=== PATIENT | female | born 1970 | race Caucasian/White ===

== ENCOUNTER 2017-02-05 15:19 | Inpatient (IN) | payer BC ==
[~2017-02-05] VITALS: Ht 170.2 cm; Wt 58.7 kg
[2017-02-05 16:53] LABS: CHLORIDE 100 mEq/L (99-109); POTASSIUM 3.5 mEq/L (3.7-5.4); SODIUM 132 mEq/L (136-147)
[2017-02-05 16:55] LABS: GLUCOSE 114 mg/dL (70-99)
[2017-02-05 16:56] LABS: ANION GAP 9 MEQ/L (2-14)
[2017-02-05 16:57] LABS: TOTAL BILIRUBIN 0.5 mg/dL (0.0-1.0)
[2017-02-05 16:58] LABS: ALKALINE PHOSPHATASE 46 IU/L (3-129)
[2017-02-05 16:59] LABS: GFR ESTIMATE (CALCULATED) 57 mL/min/
[2017-02-05 17:00] LABS: UREA NITROGEN (BUN) 14 mg/dL (9-23)
[2017-02-05 17:07] LABS: ADD MIUA? YES; BILIRUBIN NEGATIVE; BLOOD SMALL; COLOR YELLOW ((YELLOW)); GLUCOSE (STRIP) NEGATIVE; KETONES 20; LEUKOCYTES LARGE; NITRITE NEGATIVE; PROTEIN (STRIP) 100
[2017-02-05 17:08] LABS: QUANTITATIVE HCG < 4.0 MIU/ML
[2017-02-05 17:25] LABS: BACTERIA 3+ /HPF; CASTS NONE SEEN /LPF; CRYSTALS NONE SEEN; EPITHELIAL CELLS 1+ /HPF; MUCUS NONE SEEN /LPF; UCUL ADDED? YES; WHITE BLOOD CELLS TNTC /HPF (0-5)
[2017-02-05] MEDS ORDERED: SRONYX1 EACH PO (20:11)
[2017-02-05] MEDS ORDERED: IRON325 M1 PO (20:12)
[2017-02-05 21:24] LABS: EOSINOPHIL (%) 0 % (0-5); HEMATOCRIT 28.7 % (36.0-46.0); IMMATURE GRANULOCYTE (%) 0.8 % (0.0-0.7); IMMATURE GRANULOCYTE COUNT 0.1 K/uL; INSTRUMENT ABS NEUTROPHIL CT 11.2 K/uL; MCH 29.2 PG (29.0-34.0); MCHC 32.4 G/DL (30.0-36.0); MEAN PLAT.VOLUME 10.4 uM^3 (9.5-12.4); MONOCYTE COUNT 1.4 K/uL (0-0.8); NEUTROPHIL (%) 82.1 % (45-76); NEUTROPHIL COUNT 11.2 K/uL (1.8-6.4); PLATELET COUNT 152 K/uL (156-360); RBC DIS.WIDTH-CV 16.5 % (11.8-14.6); RBC DIS.WIDTH-SD 54.2 % (39-53); RED BLOOD COUNT 3.19 M/uL (3.80-5.20); WHITE BLOOD COUNT 13.6 K/uL (4.1-10.2)
[2017-02-05 22:36] VITALS: BP 98/55
[2017-02-05 23:49] VITALS: BP 96/68
[2017-02-06 03:50] VITALS: BP 128/61
[2017-02-06 06:52] LABS: HEMATOCRIT 27.5 % (36.0-46.0); MCH 30.7 PG (29.0-34.0); MCHC 33.5 G/DL (30.0-36.0); MCV 91.7 FL (83-99); MEAN PLAT.VOLUME 11.1 uM^3 (9.5-12.4); PLATELET COUNT 131 K/uL (156-360); WHITE BLOOD COUNT 9.9 K/uL (4.1-10.2)
[2017-02-06 07:21] LABS: ANION GAP 6 MEQ/L (2-14); CHLORIDE 107 MEQ/L (99-109); GFR ESTIMATE (CALCULATED) > 59 mL/min/; GLUCOSE 100 mg/dL (70-99); POTASSIUM 3.6 MEQ/L (3.7-5.4); SAMPLE HEMOLYSIS CHECK 0; SAMPLE ICTERIC CHECK 0; SAMPLE LIPEMIA CHECK 0; SODIUM 135 MEQ/L (136-147); UREA NITROGEN (BUN) 12 mg/dL (9-23)
[2017-02-06 07:30] VITALS: BP 91/53
[2017-02-06 11:35] VITALS: BP 94/54
[2017-02-06 15:37] VITALS: BP 114/70
[2017-02-06 19:58] VITALS: BP 93/50
[2017-02-07] VITALS (7 sets, daily range): BP systolic 81–116; BP diastolic 51–86
[2017-02-07 07:12] LABS: EOSINOPHIL (%) 0.2 % (0-5); HEMATOCRIT 27.7 % (36.0-46.0); IMMATURE GRANULOCYTE (%) 0.4 % (0.0-0.7); INSTRUMENT ABS NEUTROPHIL CT 4.1 K/uL; LYMPHOCYTE COUNT 0.9 K/uL (1.0-2.8); MCH 29.2 PG (29.0-34.0); MCHC 31.8 G/DL (30.0-36.0); MEAN PLAT.VOLUME 11.2 uM^3 (9.5-12.4); MONOCYTE (%) 10.4 % (3-12); MONOCYTE COUNT 0.6 K/uL (0-0.8); NEUTROPHIL (%) 72.3 % (45-76); NEUTROPHIL COUNT 4.1 K/uL (1.8-6.4); PLATELET COUNT 137 K/uL (156-360); RBC DIS.WIDTH-CV 17.1 % (11.8-14.6); RED BLOOD COUNT 3.01 M/uL (3.80-5.20); WHITE BLOOD COUNT 5.6 K/uL (4.1-10.2)
[2017-02-07 07:31] LABS: ALKALINE PHOSPHATASE 64 IU/L (3-129); ANION GAP 7 MEQ/L (2-14); CHLORIDE 109 MEQ/L (99-109); GFR ESTIMATE (CALCULATED) > 59 mL/min/; GLUCOSE 94 mg/dL (70-99); POTASSIUM 4.2 MEQ/L (3.7-5.4); SAMPLE HEMOLYSIS CHECK 0; SAMPLE ICTERIC CHECK 0; SAMPLE LIPEMIA CHECK 0; SODIUM 136 MEQ/L (136-147); TOTAL BILIRUBIN 0.3 MG/DL (0.0-1.0); UREA NITROGEN (BUN) 6 mg/dL (9-23)
[2017-02-07 09:11] LABS: C DIFF TOXIN NEGATIVE (NEGATIVE); PROBE CHECK PASS; SPECIMEN PROCESSING CONTROL PASS
[2017-02-08 03:38] VITALS: BP 112/67
[2017-02-08 05:54] LABS: EOSINOPHIL (%) 0.6 % (0-5); HEMATOCRIT 27.8 % (36.0-46.0); IMMATURE GRANULOCYTE (%) 0.4 % (0.0-0.7); INSTRUMENT ABS NEUTROPHIL CT 3.4 K/uL; LYMPHOCYTE COUNT 1.1 K/uL (1.0-2.8); MCH 30.4 PG (29.0-34.0); MCHC 33.1 G/DL (30.0-36.0); MCV 91.7 FL (83-99); MEAN PLAT.VOLUME 11.6 uM^3 (9.5-12.4); MONOCYTE COUNT 0.6 K/uL (0-0.8); NEUTROPHIL (%) 65.9 % (45-76); NEUTROPHIL COUNT 3.4 K/uL (1.8-6.4); PLATELET COUNT 165 K/uL (156-360); RBC DIS.WIDTH-CV 16.9 % (11.8-14.6); RBC DIS.WIDTH-SD 57.2 % (39-53); RED BLOOD COUNT 3.03 M/uL (3.80-5.20); WHITE BLOOD COUNT 5.1 K/uL (4.1-10.2)
[2017-02-08 06:20] LABS: ANION GAP 6 MEQ/L (2-14); CHLORIDE 107 MEQ/L (99-109); GFR ESTIMATE (CALCULATED) > 59 mL/min/; GLUCOSE 83 mg/dL (70-99); IRON 29 MCG/DL (35-150); POTASSIUM 4.3 MEQ/L (3.7-5.4); SAMPLE HEMOLYSIS CHECK 0; SAMPLE ICTERIC CHECK 0; SAMPLE LIPEMIA CHECK 0; SODIUM 136 MEQ/L (136-147); UREA NITROGEN (BUN) 6 mg/dL (9-23)
[2017-02-08 07:24] VITALS: BP 109/74
[2017-02-08 07:56] LABS: FERRITIN 62 NG/ML (10-291)
[2017-02-08] MEDS ORDERED: BACTRIM,SEPT1 TABLET PO (09:33)
== END 2017-02-08 10:25 | disposition home or self-care (01) | DRG 872 ==
LOC: EME 15:19 → 2EAST 19:17 → EDOF 19:17 → ENRESERV 19:25 → 2EAST 22:23
PROVIDERS: Family Medicine; Hospitalist
DX: A41.9 Sepsis, unspecified organism (principal); N13.6 Pyonephrosis; N39.41 Urge incontinence; E87.6 Hypokalemia; N32.81 Overactive bladder; Z87.891 Personal history of nicotine dependence; D50.9 Iron deficiency anemia, unspecified; I95.9 Hypotension, unspecified
CPT/HCPCS: 74176; 80048; 80053; 81003; 82607; 82728; 83540; 83605; 84702; 85025; 85027; 87040; 87077; 87086; 87186; 87493; 99281; 99285; J0696; J1170; J1650; J1885; J2405; J2543; J3480; J7030; J7050

== ENCOUNTER → 2017-04-11 | Outpatient (CLI) | payer BC ==
[~2017-04-11] MED LIST: BACTRIM,SEPT1 TABLET PO; IRON325 M1 PO; SRONYX1 EACH PO
== END | disposition home or self-care (01) ==
LOC: NUC 11:00
DX: N28.9 Disorder of kidney and ureter, unspecified (principal); Z87.440 Personal history of urinary (tract) infections
CPT/HCPCS: 78707; A9562